=== PATIENT | female | born 1985 | race Caucasian/White ===

== ENCOUNTER 2016-12-20 21:44 | Emergency (ER) | payer SELFPAY ==
[~2016-12-20] VITALS: Ht 162.6 cm; Wt 59.0 kg
[2016-12-20 21:55] VITALS: BP 112/69
[2016-12-20] MEDS ORDERED: NKM (21:58)
[2016-12-20] MEDS ORDERED: Solu-MEDROL 125mg Inj IVP ONE (22:00)
[2016-12-20] MEDS ORDERED: DiphenhydrAMINE 50mg/ml Inj IVP ONE (22:00)
[2016-12-20 22:35] LABS: BASOPHILS % (AUTO) 1.2 % (0.0-2.0); EOSINOPHILS % (AUTO) 0.9 % (0.0-3.0); LYMPHOCYTES % (AUTO) 44.7 % (20.0-45.0); MEAN CORPUSCULAR HEMOGLOBIN 34.1 PG (27.0-31.0); MEAN CORPUSCULAR HGB CONC 33.6 G/DL (32.0-36.0); MEAN CORPUSCULAR VOLUME 101 FL (80-99); MEAN PLATELET VOLUME 7.7 FL (6.5-10.1); MONOCYTES % (AUTO) 6.5 % (1.0-10.0); NEUTROPHILS % (AUTO) 46.6 % (45.0-75.0); PLATELET COUNT 272 K/UL (150-450); RED BLOOD COUNT 4.01 M/UL (4.20-5.40); RED CELL DISTRIBUTION WIDTH 10.9 % (11.6-14.8); WHITE BLOOD COUNT 5.6 K/UL (4.8-10.8)
[2016-12-20 22:42] LABS: APPEARANCE,URINE CLEAR; KETONES,URINE 3+ (NEGATIVE); LEUKOCYTE ESTERASE ,URINE NEGATIVE (NEGATIVE); NITRITE,URINE NEGATIVE (NEGATIVE); PH,URINE 7 (4.5-8.0); PROTEIN,URINE NEGATIVE (NEGATIVE); UROBILINOGEN,URINE NORMAL MG/DL (0.0-1.0)
[2016-12-20 22:48] LABS: ALANINE AMINOTRANSFERASE 8 U/L (3-33); ALBUMIN/GLOBULIN RATIO 1.9 (1.0-2.7); ANION GAP 18 (5-15); ASPARTATE AMINO TRANSFERASE 13 U/L (5-40); CALCIUM 9.4 mg/dL (8.6-10.2); CARBON DIOXIDE 20 mEQ/L (20-30); CHLORIDE 107 mEQ/L (98-107); CREATININE 0.7 mg/dL (0.5-0.9); GLOMERULAR FILTRATION RATE > 60 mL/min (>60); HEMOLYSIS 6; POTASSIUM 4.1 mEQ/L (3.4-4.9); SODIUM 145 mEQ/L (135-145); TOTAL PROTEIN 7.1 g/dL (6.6-8.7)
[2016-12-20 22:55] VITALS: BP 118/69
[2016-12-20 22:59] LABS: BACTERIA,URINE FEW /HPF; SQUAMOUS EPITHELIAL CELL,UR FEW /LPF (NONE/OCC); WBC,URINE 0-2 /HPF (0 - 2)
[2016-12-20] MEDS ORDERED: PREDNISONE20 MG ORAL (23:46)
[2016-12-20] MEDS ORDERED: DIPHENHYDRAMINE25 M1 ORAL (23:46)
[2016-12-20] MEDS ORDERED: RANITIDINE HCL150 MG ORAL (23:46)
[2016-12-20 23:52] VITALS: BP 122/72
--- NOTE | 2016-12-21 01:35 | Emergency Room Report ---
History of Present Illness General Chief Complaint: Allergic Reaction Source: Patient Present Illness HPI 31-year-old female presents ED for evaluation. Patient states she is having allergic reaction. 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 Patient presents with both episodes of vomiting and diarrhea along with throat tightness. Patient also mentioning cramping abdominal pain, 8/10, nonradiating. Denies shortness of breath. No other aggravating relieving factors. Denies any other associated Allergies: Coded Allergies: ACETAMINOPHEN (Verified Allergy, Unknown, 12/20/16) OXYCODONE (Verified Allergy, Unknown, 12/20/16) Patient History Past Medical History: none Past Surgical History: none Pertinent Family History: none Social History: Denies: smoking, alcohol use, drug use Last Menstrual Period: 6 years ago Now: No Immunizations: UTD Reviewed Nursing Documentation: PMH: Agreed, PSxH: Agreed Nursing Documentation-PMH Past Medical History: No History, Except For History Of Psychiatric Problem: No - Endometriosis Review of Systems All Other Systems: negative except mentioned in HPI Physical Exam Vital Signs Date Time Temp Pulse Resp B/P (MAP) Pulse Ox O2 Delivery O2 Flow Rate FiO2 12/20/16 21:48 97.2 88 15 112/69 100 Room Air Sp02 EP Interpretation: reviewed, normal General Appearance: alert, GCS 15, non-toxic, mild distress Head: normocephalic, atraumatic Eyes: bilateral eye normal inspection, bilateral eye PERRL ENT: hearing grossly normal, normal pharynx, no angioedema, normal voice Neck: full range of motion, supple/symm/no masses Respiratory: chest non-tender, lungs clear, normal breath sounds, speaking full sentences Cardiovascular #1: regular rate, rhythm, no edema Cardiovascular #2: 2+ carotid (R), 2+ carotid (L), 2+ radial (R), 2+ radial (L) , 2+ dorsalis pedis (R), 2+ dorsalis pedis (L) Gastrointestinal: normal bowel sounds, non tender, soft, non-distended, no guarding, no rebound Rectal: deferred Genitourinary: normal inspection, no CVA tenderness Musculoskeletal: back normal, gait/station normal, normal range of motion, non- tender Neurologic: alert, oriented x3, responsive, motor strength/tone normal, sensory intact, speech normal Psychiatric: judgement/insight normal, memory normal, mood/affect normal, no suicidal/homicidal ideation Reflexes: 3+ bicep (R), 3+ bicep (L), 3+ tricep (R), 3+ tricep (L), 3+ knee (R) , 3+ knee (L) Skin: normal color, no rash, warm/dry, well hydrated Lymphatic: no adenopathy Medical Decision Making Diagnostic Impression: Primary Impression: Allergic reaction Qualified Codes: T78.40XA - Allergy, unspecified, initial encounter ER Course Hospital Course 31-year-old female presents to ED complaining of throat tightness, vomiting, diarrhea after eating food potentially cross contaminated with seafood Differential diagnoses include: allergic reaction, angioedema Clinical course Patient placed on stretcher. sales promotion representative. After initial history and physical, I ordered Solu-Medrol, Benadryl, pepcid, IV fluids Labs reviewed - electrolytes okay, no leukocytosis, hemoglobin/hematocrit okay Upon reassessment patient states she feels better. Given improvement of symptoms, I believe patient can be safely discharged to home. i. I feel this is a highly complex case requiring extensive working including EKG/Rhythm strip, Xray/CT/US, Blood/urine lab work, repeat exams while in ED, and administration of strong opiates/narcotics for pain control, admission to hospital or close patient follow up. Diagnosis - allergic reaction Stable and discharged to home with prescriptions for Zantac, prednisone, Benadryl. Followup with PMD. Return to ED if symptoms recur or worsen Labs Test 12/20/16 22:00 12/20/16 22:24 White Blood Count 5.6 K/UL (4.8-10.8) Red Blood Count 4.01 M/UL (4.20-5.40) Hemoglobin 13.6 G/DL (12.0-16.0) Hematocrit 40.6 % (37.0-47.0) Mean Corpuscular Volume 101 FL (80-99) Mean Corpuscular Hemoglobin 34.1 PG (27.0-31.0) Mean Corpuscular Hemoglobin Concent 33.6 G/DL (32.0-36.0) Red Cell Distribution Width 10.9 % (11.6-14.8) Platelet Count 272 K/UL (150-450) Mean Platelet Volume 7.7 FL (6.5-10.1) Neutrophils (%) (Auto) 46.6 % (45.0-75.0) Lymphocytes (%) (Auto) 44.7 % (20.0-45.0) Monocytes (%) (Auto) 6.5 % (1.0-10.0) Eosinophils (%) (Auto) 0.9 % (0.0-3.0) Basophils (%) (Auto) 1.2 % (0.0-2.0) Sodium Level 145 mEQ/L (135-145) Potassium Level 4.1 mEQ/L (3.4-4.9) Chloride Level 107 mEQ/L (98-107) Carbon Dioxide Level 20 mEQ/L (20-30) Anion Gap 18 (5-15) Blood Urea Nitrogen 8 mg/dL (7-23) Creatinine 0.7 mg/dL (0.5-0.9) Estimat Glomerular Filtration Rate > 60 mL/min (>60) Glucose Level 99 mg/dL (74-106) Calcium Level 9.4 mg/dL (8.6-10.2) Total Bilirubin 0.2 mg/dL (0.0-1.2) Aspartate Amino Transf (AST/SGOT) 13 U/L (5-40) Alanine Aminotransferase (ALT/SGPT) 8 U/L (3-33) Alkaline Phosphatase 46 U/L (35-104) Total Protein 7.1 g/dL (6.6-8.7) Albumin 4.7 g/dL (3.5-5.2) Globulin 2.4 g/dL Albumin/Globulin Ratio 1.9 (1.0-2.7) Urine Color Pale yellow Urine Appearance Clear Urine pH 7 (4.5-8.0) Urine Specific [place] 1.010 (1.005-1.035) Urine Protein Negative (NEGATIVE) Urine Glucose (UA) Negative (NEGATIVE) Urine Ketones 3+ (NEGATIVE) Urine Occult Blood 1+ (NEGATIVE) Urine Nitrite Negative (NEGATIVE) Urine Bilirubin Negative (NEGATIVE) Urine Urobilinogen Normal MG/DL (0.0-1.0) Urine Leukocyte Esterase Negative (NEGATIVE) Urine RBC 2-4 /HPF (0 - 2) Urine WBC 0-2 /HPF (0 - 2) Urine Squamous Epithelial Cells Few /LPF (NONE/OCC) Urine Bacteria Few /HPF (NONE) Urine HCG, Qualitative Negative Last Vital Signs Date Time Temp Pulse Resp B/P (MAP) Pulse Ox O2 Delivery O2 Flow Rate FiO2 12/20/16 23:52 98.1 78 16 122/72 100 Room Air Status: improved Disposition: HOME, SELF-CARE Condition: Stable Scripts Ranitidine Hcl* (ZANTAC*) 150 Mg Tablet 150 MG ORAL TWICE A DAY, #30 TAB Prov: TONIA BOSTON M.D. 12/20/16 Diphenhydramine Hcl* (DIPHENHYDRAMINE HCL*) 25 Mg Capsule 25 MG ORAL Q6H Y for Itching for 5 Days, #30 CAP 0 Refills Prov: TONIA BOSTON M.D. 12/20/16 Prednisone* (PREDNISONE*) 20 Mg Tablet 40 MG ORAL DAILY, #10 TAB Prov: TONIA BOSTON M.D. 12/20/16 Referrals: NOT CHOSEN [facility]/,REFERRING (PCP) Patient Instructions: Food Allergy TONIA BOSTON M.D. Dec 21, 2016 01:35
== END 2016-12-20 23:52 | disposition home or self-care (01) ==
LOC: EMR 22:08
DX: T78.40XA Allergy, unspecified, initial encounter (principal); X58.XXXA Exposure to other specified factors, initial encounter; Z88.6 Allergy status to analgesic agent
CPT/HCPCS: 36415; 80053; 81003; 81025; 85025; 96361; 96374; 96375; 99284; J1200; J2405; J2930; S0028; 87086; 87181